=== PATIENT | male | born 1960 | race Two or more races ===

== ENCOUNTER 2018-06-21 06:39 | Emergency (ER) | payer SELFPAY ==
[~2018-06-21] VITALS: Ht 162.6 cm; Wt 59.0 kg
--- NOTE | 2018-06-21 06:55 | NUR ---
ED Nurse Note: Pt walked in ER and c/o difficult breathing for 3 months. Pt has no smoking Hx, no allergy. Pt is AO x 4times, VSS, on room air no distress. MILOD seen Pt at bedside.
[2018-06-21 07:00] VITALS: BP 135/88
[2018-06-21] MEDS ORDERED: TESSALON PERLE100 M2 ORAL (07:00)
[2018-06-21] MEDS ORDERED: ATENOLOL25 MG ORAL (07:00)
--- NOTE | 2018-06-21 07:05 | NUR ---
ED Nurse Note: REPORT RECEIVED FROM ALEXANDER KING.
--- NOTE | 2018-06-21 07:14 | Emergency Room Report ---
History of Present Illness General Chief Complaint: Dyspnea/Respdistress Source: Patient, Family Member Present Illness HPI Patient presents with chief complaint of cough and chest pain. This has been going on for 3 months. He was evaluated once before and given an inhaler. He states the inhaler hasn't helped him at all. He has no history of asthma or smoking. He's is not bringing up any phlegm. He has significant chest pain when he is coughing and also when he is exerting himself. He's never had a cardiac evaluation. There is no nausea or vomiting. In the shower he felt that he was going to pass out a few days ago. There were no palpitations or chest pain at that time. He denies night sweats. He has had weight loss. No post tussive LOC. Does have anxiety with coughing episodes. No headache, change in vision, rashes, joint pain, calf pain, edema. Allergies: Coded Allergies: No Known Allergies (Unverified , 06/21/18) Patient History Past Medical History: see triage record Social History: Denies: smoking Social History Narrative from martha Queen Reviewed Nursing Documentation: PMH: Agreed; PSxH: Agreed Nursing Documentation-PMH Past Medical History: No Stated History Review of Systems All Other Systems: negative except mentioned in HPI Physical Exam Vital Signs Date Time Temp Pulse Resp B/P (MAP) Pulse Ox O2 Delivery O2 Flow Rate FiO2 06/21/18 06:45 98.1 67 14 145/76 99 Room Air Sp02 EP Interpretation: reviewed, normal General Appearance: well appearing, no apparent distress, GCS 15 Head: normocephalic Eyes: bilateral eye normal inspection, bilateral eye PERRL ENT: moist mucus membranes Neck: supple Respiratory: lungs clear, normal breath sounds, wheezing - post-tussive only Cardiovascular #1: regular rate, rhythm, no edema Cardiovascular #2: 2+ radial (R) Gastrointestinal: normal inspection, normal bowel sounds, non tender, no mass, non-distended Musculoskeletal: back normal, gait/station normal, normal range of motion, no calf tenderness, Derian's Sign negative Neurologic: alert, oriented x3, grossly normal Psychiatric: mood/affect normal Skin: normal inspection, warm/dry Medical Decision Making Diagnostic Impression: Primary Impression: Dyspnea Qualified Codes: R06.00 - Dyspnea, unspecified Additional Impressions: Cough Bronchospasm ER Course Patient presents with cough and dizziness and chest pain. Differential includes acute myocardial infarction, acute coronary syndrome, bronchospasm, asthma, bronchitis, mycoplasma, influenza amongst others. Clinically he does not have a pulmonary embolus. He will be evaluated with EKG, chest x-ray and labs including influenza swab. He will be treated with albuterol and Atrovent. She has eosinophilia he will receive steroids. He will be given Tylenol for the pain and also aspirin. EKG no injury. CXR no infiltrates or scarring. CBC normal without eosinophilia. CMP with min low potassium. Improved with breathing treatments. Cough extinguished. Discussed treatment plan with patient and son. Patient stable for outpatient observation and treatment. Laboratory Tests Test 06/21/18 07:13 06/21/18 07:45 White Blood Count 5.4 K/UL (4.8-10.8) Red Blood Count 4.72 M/UL (4.70-6.10) Hemoglobin 13.9 G/DL (14.2-18.0) L Hematocrit 40.2 % (42.0-52.0) L Mean Corpuscular Volume 85 FL (80-99) Mean Corpuscular Hemoglobin 29.4 PG (27.0-31.0) Mean Corpuscular Hemoglobin Concent 34.5 G/DL (32.0-36.0) Red Cell Distribution Width 11.4 % (11.6-14.8) L Platelet Count 274 K/UL (150-450) Mean Platelet Volume 5.8 FL (6.5-10.1) L Neutrophils (%) (Auto) 75.0 % (45.0-75.0) Lymphocytes (%) (Auto) 13.9 % (20.0-45.0) L Monocytes (%) (Auto) 9.3 % (1.0-10.0) Eosinophils (%) (Auto) 0.9 % (0.0-3.0) Basophils (%) (Auto) 0.9 % (0.0-2.0) Prothrombin Time 11.4 SEC (9.30-11.50) Prothrombin Time INR 1.1 (0.9-1.1) PTT 32 SEC (23-33) Sodium Level 138 MMOL/L (136-145) Potassium Level 3.3 MMOL/L (3.5-5.1) L Chloride Level 103 MMOL/L (98-107) Carbon Dioxide Level 27 MMOL/L (21-32) Anion Gap 8 mmol/L (5-15) Blood Urea Nitrogen 15 mg/dL (7-18) Creatinine 0.8 MG/DL (0.55-1.30) Estimate Glomerular Filtration Rate > 60 mL/min (>60) Glucose Level 123 MG/DL (74-106) H Calcium Level 9.0 MG/DL (8.5-10.1) Total Bilirubin 0.7 MG/DL (0.2-1.0) Aspartate Amino Transferase (AST) 18 U/L (15-37) Alanine Aminotransferase (ALT) 21 U/L (12-78) Alkaline Phosphatase 74 U/L (46-116) Total Creatine Kinase 104 U/L (26-308) Troponin I 0.000 ng/mL (0.000-0.056) Pro-B-Type Natriuretic Peptide 25 pg/mL (0-125) Total Protein 8.0 G/DL (6.4-8.2) Albumin 3.3 G/DL (3.4-5.0) L Globulin 4.7 g/dL Albumin/Globulin Ratio 0.7 (1.0-2.7) L Urine Color Pale yellow Urine Appearance Clear Urine pH 7 (4.5-8.0) Urine Specific [place] 1.005 (1.005-1.035) Urine Protein 1+ (NEGATIVE) H Urine Glucose (UA) Negative (NEGATIVE) Urine Ketones Negative (NEGATIVE) Urine Blood 3+ (NEGATIVE) H Urine Nitrite Negative (NEGATIVE) Urine Bilirubin Negative (NEGATIVE) Urine Urobilinogen Normal MG/DL (0.0-1.0) Urine Leukocyte Esterase 1+ (NEGATIVE) H Urine RBC 5-10 /HPF (0 - 0) H Urine WBC 2-4 /HPF (0 - 0) Urine Squamous Epithelial Cells Occasional /LPF Urine Bacteria Occasional /HPF (NONE) Microbiology Date/Time Source Procedure Growth Status 06/21/18 07:45 Nasal Nares Influenza Types A,B Antigen (ODELL) - Final Complete EKG Diagnostic Results Rate: normal Rhythm: NSR ST Segments: no acute changes - incomplete RBBB Rhythm Strip Diag. Results EP Interpretation: yes Rhythm: NSR, no PVC's, no ectopy Chest X-Ray Diagnostic Results Chest X-Ray Diagnostic Results : Chest X-Ray Ordered: Yes # of Views/Limited/Complete: 1 View Indication: Other EP Interpretation: Yes Interpretation: no consolidation, no effusion, no pneumothorax Impression: No acute disease Electronically Signed by: Electronically signed by Pedrito Cuellar MD Last Vital Signs Date Time Temp Pulse Resp B/P (MAP) Pulse Ox O2 Delivery O2 Flow Rate FiO2 06/21/18 09:14 98.4 76 17 111/73 98 Room Air 06/21/18 07:16 21 Status: improved Disposition: HOME, SELF-CARE Condition: Improved Scripts Guaifenesin/Codeine Phos* (ROBITUSSIN AC*) 118 Ml Liquid 5 ML ORAL Q6H PRN for For Cough, #90 ML 0 Refills Prov: Pedrito Cuellar MD 06/21/18 Inhaler, Assist Devices (E-Z SPACER) 1 Each Spacer EACH MC, #1 Prov: Pedrito Cuellar MD 06/21/18 Beclomethasone Dipropionate 40MCG Oral Inh (QVAR 40*) 7.3 Gm Aer.w.adap 2 PUFFS INH TWICE A DAY, #1 GM 0 Refills Prov: Pedrito Cuellar MD 06/21/18 Albuterol Sulfate* (ALBUTEROL SULFATE MDI*) 8.5 Gm Hfa.aer.ad 2 PUFF INH Q6H, #1 EA 0 Refills Prov: Pedrito Cuellar MD 06/21/18 Pedrito Cuellar MD Jun 21, 2018 07:14
[2018-06-21] MEDS ORDERED: Ipratropium 0.02% Inh Soln 2.5ml UD HHN ONE (07:15)
[2018-06-21] MEDS ORDERED: Acetaminophen 500mg (ES) tab ORAL ONE (07:15)
[2018-06-21] MEDS ORDERED: Albuterol ud Inhalation HHN ONE (07:15)
--- NOTE | 2018-06-21 07:15 | NUR ---
ED Nurse Note: RT AT BEDSIDE FOR BREATHING TREATMENT.
[2018-06-21 07:39] LABS: BASOPHILS % (AUTO) 0.9 % (0.0-2.0); EOSINOPHILS % (AUTO) 0.9 % (0.0-3.0); HEMATOCRIT 40.2 % (42.0-52.0); HEMOGLOBIN 13.9 G/DL (14.2-18.0); LYMPHOCYTES % (AUTO) 13.9 % (20.0-45.0); MEAN CORPUSCULAR VOLUME 85 FL (80-99); MONOCYTES % (AUTO) 9.3 % (1.0-10.0); PLATELET COUNT 274 K/UL (150-450); RED BLOOD COUNT 4.72 M/UL (4.70-6.10); RED CELL DISTRIBUTION WIDTH 11.4 % (11.6-14.8); WHITE BLOOD COUNT 5.4 K/UL (4.8-10.8)
[2018-06-21 07:46] LABS: INR 1.1 (0.9-1.1)
--- NOTE | 2018-06-21 07:52 | NUR ---
ED Nurse Note: PT OFFERED BREAKFAST. PT STATES HE IS NOT HUNGRY.
[2018-06-21 07:53] LABS: ANION GAP 8 mmol/L (5-15); BLOOD UREA NITROGEN 15 mg/dL (7-18); CARBON DIOXIDE 27 MMOL/L (21-32); CHLORIDE 103 MMOL/L (98-107); CREATININE 0.8 MG/DL (0.55-1.30); POTASSIUM 3.3 MMOL/L (3.5-5.1); SODIUM 138 MMOL/L (136-145)
[2018-06-21 08:14] LABS: APPEARANCE,URINE CLEAR; BILIRUBIN, URINE NEGATIVE (NEGATIVE); COLOR,URINE PALE YELLOW; GLUCOSE, URINE (UA) NEGATIVE (NEGATIVE); KETONES,URINE NEGATIVE (NEGATIVE); LEUKOCYTE ESTERASE ,URINE 1+ (NEGATIVE); NITRITE,URINE NEGATIVE (NEGATIVE); PH,URINE 7 (4.5-8.0); PROTEIN,URINE 1+ (NEGATIVE); UROBILINOGEN,URINE NORMAL MG/DL (0.0-1.0)
[2018-06-21 08:17] LABS: ALANINE AMINOTRANSFERASE 21 U/L (12-78); ALBUMIN 3.3 G/DL (3.4-5.0); ALBUMIN/GLOBULIN RATIO 0.7 (1.0-2.7); ALKALINE PHOSPHATASE 74 U/L (46-116); ASPARTATE AMINO TRANSFERASE 18 U/L (15-37); BILIRUBIN,TOTAL 0.7 MG/DL (0.2-1.0); CREATINE KINASE 104 U/L (26-308)
--- NOTE | 2018-06-21 08:30 | Diagnostic Imaging Report ---
EXAM: XR Chest, 1 View CLINICAL HISTORY: COUGH TECHNIQUE: Frontal view of the chest. COMPARISON: No relevant prior studies available. FINDINGS: Lungs: Reduced lung volumes with accentuation of pulmonary markings. No confluent consolidation. Pleural space: Unremarkable. No pneumothorax. Heart: Unremarkable. No cardiomegaly. Mediastinum: Unremarkable. Bones/joints: No acute fracture. IMPRESSION: Reduced lung volumes with accentuation of pulmonary markings. No confluent consolidation.
[2018-06-21 08:50] VITALS: BP 106/72
[2018-06-21 09:14] VITALS: BP 111/73
--- NOTE | 2018-06-21 09:15 | NUR ---
ED Nurse Note: PT LAYING PEACEFULLY IN BED IN NAD. AOX4. SON AT BEDSIDE. PRESCRIPTIONS AND DISCHARGE PAPERWORK EXPLAINED TO PT AND SON. BOTH VERBALIZE UNDERSTANDING AND DENY ANY QUESTIONS AT THIS TIME. PRESCRIPTIONS AND DISCHARGE PAPERWORK GIVEN TO PT, IV AND ID WRISTBAND REMOVED. PT WALKED OUT OF ER WITH STEADY GAIT AND ALL BELONGINGS.
[2018-06-21] MEDS ORDERED: GUAIFENESIN-CO118 M1 ORAL (09:51)
[2018-06-21] MEDS ORDERED: E-Z SPACER1 EACH MC (09:51)
[2018-06-21] MEDS ORDERED: QVAR7.3 GM INH (09:51)
[2018-06-21] MEDS ORDERED: ALBUTEROL SULF8.5 GM INH (09:51)
== END 2018-06-21 09:14 | disposition home or self-care (01) ==
LOC: EMR 07:15
DX: R05 Cough (principal); J98.01 Acute bronchospasm; R06.00 Dyspnea, unspecified; R07.9 Chest pain, unspecified
CPT/HCPCS: 36415; 71045; 80053; 81003; 82550; 83880; 84484; 85025; 85610; 85730; 86710; 93005; 94640; 94664; 96360; 96361; 99284